=== PATIENT | male | born 1955 | race Caucasian/White ===

== ENCOUNTER → 2025-06-27 | Outpatient (CLI) | payer MEDICARE, OTHER, SELFPAY ==
[2025-06-27 16:35] LABS: Hematocrit 48.6 % (40-54); Hemoglobin 16.3 g/dL (13.0-16.5); Immature Granulocytes Count 0.040 X10^3/uL (0.0-0.0); Mean Corp Hgb Conc 33.5 g/dL (32-36); Mean Corpuscular Volume 88.4 fL (80-94); Mean Platelet Vol. 10.3 fl (6.2-12.0); NRBC Flagged by Analyzer 0 % (0-5); Platelet Count 340 K/mm3 (150-450); RBC Distribution Width CV 13.2 % (11.6-14.6); RBC Distribution Width SD 42.8 fl (35.1-43.9); Red Blood Count 5.50 M/mm3 (4.6-6.2); White Blood Count 9.2 K/mm3 (4.4-11.0)
== END | disposition home or self-care (01) ==
PROVIDERS: Referring Provider Nurse Practitioner Family; Visit Provider Nurse Practitioner Family
DX: M25.50 Pain in unspecified joint (principal); M62.81 Muscle weakness (generalized); R53.82 Chronic fatigue, unspecified; J33.9 Nasal polyp, unspecified; R03.0 Elevated blood-pressure reading, without diagnosis of hypertension; H33.199 Other retinoschisis and retinal cysts, unspecified eye; F41.9 Anxiety disorder, unspecified; G90.09 Other idiopathic peripheral autonomic neuropathy; Z91.030 Bee allergy status; A69.29 Other conditions associated with Lyme disease; A79.9 Rickettsiosis, unspecified; R35.1 Nocturia
CPT/HCPCS: 85025